=== PATIENT | male | born 1995 | race Caucasian/White ===

== ENCOUNTER 2024-07-15 14:38 | Emergency (ER) | payer OTHER ==
[~2024-07-15] VITALS: Ht 175.3 cm; Wt 76.8 kg
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
[2024-07-15] MEDS ORDERED: IBUP-1986 PO (17:32)
[2024-07-15] MEDS: ketorolac trometh 15mg/ml vial 15 MG/ML ML IM ONE (17:53)
[2024-07-15 17:55] VITALS: BP 108/64; PULSE 72; RESP 16; TEMP 98; O2SAT 95
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
== END 2024-07-15 17:56 | disposition home or self-care (01) ==
LOC: ER 14:39
DX: M25.521 Pain in right elbow (principal)
CPT/HCPCS: 73080; 93971; 99284; A4565; A6449